=== PATIENT | female | born 1960 | race Caucasian/White ===

== ENCOUNTER 2022-02-08 08:27 | Outpatient (CLI) | payer OTHER, SELFPAY ==
--- NOTE | 2022-02-08 08:42 | ECG_ITS ---
Measurements Intervals [place] Rate: 106 P: 64 NH: 167 QRS: 26 QRSD: 80 T: 8 QT: 325 QTc: 432 Interpretive Statements SINUS TACHYCARDIA CANNOT RULE OUT ANTERIOR INFARCTION, AGE UNDETERMINED ABNORMAL ECG NO PREVIOUS ECG AVAILABLE FOR COMPARISON Electronically Signed On 02-08-2022 13:40:54 VESSEL MANAGER by Jesus Blanchard M.D.
[2022-02-08 09:15] LABS: Anion Gap 7 mmol/L (8-16); Blood Urea Nitrogen 17 mg/dL (7-17); Calcium 9.9 mg/dL (8.4-10.2); Carbon Dioxide 33 mmol/L (22-30); Chloride 100 mmol/L (98-107); Estimated Glomerular Filt Rate > 60; Glucose 150 mg/dL (65-110); Potassium 3.8 mmol/L (3.4-5.0); Sodium 140 mmol/L (137-145)
== END 2022-02-08 08:28 | disposition home or self-care (01) ==
PROVIDERS: Anesthesiology; PCP Family Medicine; Visit Provider Plastic Surgery
DX: I10 Essential (primary) hypertension (principal); Z79.899 Other long term (current) drug therapy; Z01.818 Encounter for other preprocedural examination; R94.31 Abnormal electrocardiogram [ECG] [EKG]
CPT/HCPCS: 36415; 80048; 93005

== ENCOUNTER 2022-02-15 01:11 | Day surgery (SDC) | payer OTHER, SELFPAY ==
[2022-02-05 12:23] VITALS: BMI 30.2
--- NOTE | 2022-02-05 12:27 | PC.NURSE ---
Report to the Outpatient Waiting Room, entrance under the green pavilion located off [facility], at time 6:00 on date 02/15/22. Planned Procedure Time: 7:30. Time changes happen often and if your time is changed the preop area will call you the afternoon before. - You and your visitor will be asked to self-screen and do not enter if you have any COVID symptoms. - Only one visitor is requested with a max of two and NO children visitors are allowed at this time. - The patient visitor may be requested to leave or wait in car when not with patient due to distancing restrictions. - A mask is REQUIRED within the hospital. Patients may have clear liquids (water, carbonated beverages, clear teas, apple juice) until 3 hours prior to surgery (4:30) with a maximum of 20 ounces. - No food from midnight until time of surgery Take the following medications with a SIP of water the morning of surgery: AMLODIPINE Medications to discontinue per physician: N/A Date to take last dose: N/A Please no make-up, nail turkmen, hairspray, perfume, deodorant, or body powder the day of surgery. No jewelry (including any body piercings) or valuables the day of surgery, leave them at home. Please take a shower or bath the night before, or the morning of, surgery with an antibacterial soap. Wear comfortable, loose fitting clothing. - Jewelry must be removed prior to entering the operating room. Rings and piercings that are not removed may be cut off. - The hospital will not accept responsibility for valuables. - Please leave all valuables, including medications, at home the day of surgery. If you are going home after surgery, a licensed catshovel driver must drive you home. - NO public transportation without another adult if you receive anesthesia. - We recommend that an adult stay with you for 24 hours following discharge. - We also recommend that you do not drive, make important decision, drink alcoholic beverages, or take any drugs that were not prescribed by your health care provider for at least 24 hours after your discharge time. Follow any additional instructions given to you from your surgeon. If you or anyone in your household have experienced Covid symptoms in the past week, please notify your surgeon or the nurse liaison at the phone number below for possible testing. Telephone instructions given to PT - MANDY GUTIERREZ and asked if any additional questions and then verbalized understanding. Patient advised to call surgeon office or pre surgery nurse liaison [phone] if any additional questions.
[2022-02-15] VITALS (7 sets, daily range): BP systolic 107–161; BP diastolic 52–66; PULSE 75–103; RESP 15–20; TEMP 36.6–37.3; O2SAT 92–100
[2022-02-15] MEDS: LACTATED RINGERS 1,000 ML 30 ML IV CONT ×2 (06:35→09:18)
--- NOTE | 2022-02-15 07:10 | P.PNAN_ITS ---
Anes - Initial Pre Proc Eval Procedure: Operation Date: 02/15/22 07:30 Proposed Procedures p Right Partial Palmar Fasciectomy - Fco Hernandez MD Date/Time: 02/15/22 07:10 Surgeon: Fco Hernandez MD Pre Op Diagnosis: Dupuytrens Contracture Rt Hand Patient Data Age: 61 Gender: F Height: 1.59 m Weight: 77.7 kg Last Vital Signs Temp 99.1 F 02/15/22 06:22 Pulse 97 02/15/22 06:22 Resp 18 02/15/22 06:22 BP 161/66 H 02/15/22 06:22 Pulse Ox 100 02/15/22 06:22 O2 Del Method Room Air 02/15/22 06:22 Allergies Allergy/AdvReac Type Severity Reaction Status Date / Time Penicillins Allergy Unknown Hives Verified 02/15/22 07:02 Home Medications Medication Instructions Recorded Confirmed Type olmesartan 40 1 tablet PO DAILY #90 tabs 09/11/21 02/15/22 Rx mg-hydrochlorothiazide 25 mg tablet amlodipine 2.5 mg tablet 2.5 mg PO DAILY #30 tabs 11/02/21 02/15/22 Rx Patient hx anesthesia problems: none Family hx anesthesia problems: none Results Review: All pre-operative results and documents have been reviewed as part of the pre- operative evaluation. [facility] Past Medical History Medical History (System 10/10/21 @ 15:38 by Mahnaz Oquendo) Dupuytren contracture HLD (hyperlipidemia) Hypertension Reactive airway disease Family History Family History Other Acute myocardial infarction Diabetes mellitus Social History Social History (System 10/10/21 @ 15:38 by Mahnaz Oquendo) Smoking packs per day: 0.5 Smoking cigarettes per day: 10.0 Years smoked: 15 Smoking pack-years: 7.50 Smoking status: Former smoker Tobacco type: cigarettes Second hand tobacco smoke exposure: No Smoking end date: 02/18/06 Alcohol intake: current Drinks per week: 6 Substance use: never Substance use type: does not use Living arrangements: with family Spiritual care concerns: No Anes - Eval Final PreProcedure Day of Procedure 02/15/22 07:10 Patient weight: obese Heart: regular rate and rhythm Lungs: clear to auscultation Airway: Mallampati scale class II Neurological: alert and oriented Last oral intake: >/= 8 hours ASA classification: II Emergent: no Anesthetic plan: proceed Anesthesia type and monitoring: general LMA and standard monitoring Results Review: All pre-operative results and documents have been reviewed as part of the pre- operative evaluation. Informed Consent: The patient's anesthetic plan and its attendant risks and benefits were discussed with the patient/family/POA. Questions were solicited and answers provided to the satisfaction of the patient/family/POA.
--- NOTE | 2022-02-15 07:10 | WPDHPUPDATE1 ---
History and Physical Update Update Date/Time: 02/15/22 07:10 History and Physical has been reviewed, including an updated exam of the patient. There are NO changes in the patient's condition. Risks, benefits, and alternatives have been discussed and questions answered. Patient agrees to proceed with procedure.
--- NOTE | 2022-02-15 09:45 | W.PM.PROC2 ---
Procedure Note - Detailed Date of Procedure 02/15/22 Pre-op Diagnosis Dupuytrens Contracture Rt Hand Post-op Diagnosis Same Procedure Performed Right partial palmar fasciectomy Surgeon Fco Hernandez MD Specialist Icu Amy Anesthesia General Indications Contractions involving the middle and ring fingers prohibiting normal use Description of Procedure The right palm was marked for identification with the patient's consent in the holding area. She was taken to the operating room where she was placed supine on the operating table. She was given sedation anesthetic with an LMA. The right upper extremity was prepped and draped in usual fashion. A pneumatic tourniquet was applied. A time-out was held and confirmed. Markings were made on the hand for planned access. Approximately 10 milliliter of 1% lidocaine with epinephrine was infiltrated in the subcutaneous tissue of the palm. The extremity was exsanguinated with an El wrap and the tourniquet was inflated to 250 mmHg. Stephanie incisions were made in the palm to release the proximal fascia contributing to 3rd and 4th ray pretendinous cords. We found dense intermetacarpal fascia. Release of this allowed full extension of the metacarpophalangeal joint as well as separation of the 3rd and 4th metacarpals. Further dissection was extended onto the proximal phalanx of the ring finger ray. A pretendinous and spiral cord were dissected and removed. The neurovascular bundles were exposed in his case and preserved intact. The wound closure required no additional Z-plasties. The tourniquet was released prior to complete closure. The closure was accomplished with interrupted 4-0 nylon suture. There was minimal bleeding at the termination of the case. A bulky bandage with El wrap was applied. Perfusion to all areas seemed to be adequate. Estimated Blood Loss 2 Drains No Packing No Pathology None sent Complications No immediate complications Condition Stable Disposition PACU
--- NOTE | 2022-02-15 09:53 | SUR.PHASEI ---
0952: Simple mask removed.
== END 2022-02-15 10:56 | disposition home or self-care (01) ==
PROVIDERS: PCP Family Medicine; Visit Provider Plastic Surgery
PROC: (CPT 26045; principal; 2022-02-15 07:30)
DX: M72.0 Palmar fascial fibromatosis [Dupuytren] (principal); I10 Essential (primary) hypertension; E78.5 Hyperlipidemia, unspecified; Z87.891 Personal history of nicotine dependence; E66.9 Obesity, unspecified; Z68.30 Body mass index [BMI] 30.0-30.9, adult
CPT/HCPCS: 26123; 26125; 36415; 80048; 93005; A9270; J1100; J2250; J2405; J2704; J3010; J7120